=== PATIENT | female | born 1990 | race Two or more races ===

== ENCOUNTER 2020-03-09 10:43 | Inpatient (IN) | payer SELFPAY ==
[2020-03-09] MEDS ORDERED: VANCOMYCIN HCL INJ 1000 MG VIAL IV ONE (11:57)
[2020-03-09] MEDS ORDERED: PIPERACILLIN/TAZOBACTAM 4.5 GM VIAL IV ONE (11:57)
[2020-03-09 12:05] LABS: ABSOLUTE LYMPHOCYTES (AUTO) 2.4 10^3/uL (0.5-4.7); ABSOLUTE MONOCYTES (AUTO) 0.4 10^3/uL (0.1-1.4); ABSOLUTE NEUT (AUTO) 10.2 10^3/uL (1.7-8.2); BASOPHILS % (AUTO) 0.4 % (0-2); EOSINOPHILS % (AUTO) 0.3 % (0-6); HEMATOCRIT 29.7 % (36.0-47.0); HEMOGLOBIN 9.9 g/dL (12.0-15.5); LYMPHOCYTES % (AUTO) 18.4 % (13-45); MEAN CORPUSCULAR HEMOGLOBIN 29.6 pg (27.0-33.4); MEAN CORPUSCULAR HGB CONC 33.4 g/dL (32.0-36.0); MEAN CORPUSCULAR VOLUME 89 fl (80-97); MONOCYTES % (AUTO) 2.8 % (3-13); RED BLOOD COUNT 3.36 10^6/uL (3.72-5.28); RED CELL DISTRIBUTION WIDTH 17.8 % (11.5-14.0); SEGMENTED NEUTROPHILS % (AUTO) 78.1 % (42-78); TOTAL CELLS COUNTED % (AUTO) 100 %; WHITE BLOOD COUNT 13.1 10^3/uL (4.0-10.5)
[2020-03-09] MEDS ORDERED: RINGERS LACTATED IV ONE (12:09)
[2020-03-09 12:10] LABS: INTERNATIONAL RATION (INR) 1.31; PROTHROMBIN TIME 16.5 SEC (11.4-15.4)
[2020-03-09 12:22] LABS: ALBUMIN 2.9 g/dL (3.5-5.0); ALKALINE PHOSPHATASE 142 U/L (38-126); ASPARTATE AMINO TRANSFERASE 26 U/L (14-36); BILIRUBIN,TOTAL 1.1 mg/dL (0.2-1.3); BLOOD UREA NITROGEN 70 mg/dL (7-20); CALCIUM 8.3 mg/dL (8.4-10.2); GLUCOSE 106 mg/dL (75-110); POTASSIUM 4.5 mmol/L (3.6-5.0)
--- NOTE | 2020-03-09 12:25 | ER Document Report ---
ED General - General Chief Complaint: Drug Abuse Stated Complaint: SOB/NO APPETITE/MUSCLE PAIN/FEVER/CHEST PAIN Time Seen by Provider: 03/09/20 11:24 TRAVEL OUTSIDE OF THE [place] IN LAST 30 DAYS: No - HPI Notes: Chief complaint: Weakness and generalized myalgias, CP History of present illness: 29-year-old female with history of IV heroin abuse states that she last injected herself about 2 days ago and is now presenting with generalized weakness , CP and myalgias. She feels nauseated but has not vomited. We note that this lady has a past history of infective endocarditis. She was previously admitted here back in December of this year with suspected septic pulmonary emboli. She signed herself out AMA before completing treatment. I looked at those records and the chest x-ray at that time had shown some nodular densities suggestive of septic emboli. CT of the chest and abdomen were negative for obvious emboli. She had an echocardiogram performed around January [address] Rodriguez and this did not show any definite vegetations. Patient says she was subsequently admitted to [facility] and was told that she did have positive blood cultures and she was treated as an inpatient with IV antibiotics and subsequently told that the infection had " cleared". She says she completed the recommended course of treatment and did not sign herself out AMA at that facility. - Related Data Allergies/Adverse Reactions: No Known Allergies Allergy (Verified 01/23/15 14:42) Home Medications: propanolol Past Medical History - General Information source: Patient, [facility] Records - Social History Smoking Status: Current Some Day Smoker Frequency of alcohol use: Occasional Drug Abuse: Heroin Family History: Reviewed & Not Pertinent - Past Medical History Cardiac Medical History: Reports: Other - Bacterial endocarditis Pulmonary Medical History: Reports: Hx Asthma Neurological Medical History: Reports: Hx Migraine Endocrine Medical History: Denies: Hx Diabetes Mellitus Type 1, Hx Diabetes Mellitus Type 2 Psychiatric Medical History: Reports: Hx Anxiety, Hx Bipolar Disorder, Hx Depression Past Surgical History: Reports: Hx Cardiac Surgery - endocarditis - Immunizations Immunizations up to date: Yes Hx Diphtheria, Pertussis, Tetanus Vaccination: Yes Review of Systems - Review of Systems Notes: Constitutional: Negative for fever. HENT: Negative for sore throat. Eyes: Negative for visual changes. Cardiovascular: Diffuse intermittent chest pain. Respiratory: Negative for shortness of breath. Gastrointestinal: As per HPI . Genitourinary: Negative for dysuria. Musculoskeletal: As per HPI. Skin: Negative for rash. Neurological: Negative for headaches, focal weakness or numbness. 10 point ROS negative except as marked above and in HPI. Physical Exam - Vital signs Vitals: Pulse Resp BP Pulse Ox 91 20 80/42 L 100 03/09/20 11:02 03/09/20 11:02 03/09/20 11:02 03/09/20 11:02 Notes: GENERAL: Slender, chronically ill-appearing female approximately stated age who appears dehydrated. SKIN: Good turgor no rashes. Multiple needle tracks present. HEAD: Normocephalic atraumatic. EYES: As appear somewhat sunken consistent with dehydration. PERRLA. EOMI. Conjunctivae and sclerae clear. EARS: CANALS AND TMS CLEAR. NOSE: CLEAR. MOUTH: Tacky oral mucosa. Good dentition. No stridor or edema. No drooling. NECK: Supple. No masses or thyromegaly. No adenopathy. Carotids 2+ without bruits. No JVD. BACK: Symmetrical with mild diffuse tenderness. CHEST: Mild diffuse chest wall tenderness. Respirations unlabored. Breath sounds clear and symmetrical. HEART: Regular rhythm. No murmur gallop or rub. ABDOMEN: Soft nontender without masses, organomegaly or rebound. Bowel sounds normally active. No bruits. GENITALIA: Deferred. EXTREMITIES: No edema. No calf tenderness. Cap refill less than 1.5 seconds. Dorsalis pedis and posterior tibial pulses1+ and symmetrical. NEUROLOGICAL: GCS 15. Alert and oriented x3. Fluent speech. Cranial nerves II through XII intact. Sensorimotor and cerebellar normal. Normal tone. PSYCHIATRIC: Anxious affect. Course - Re-evaluation Re-evalutation: 03/09/20 14:01 Patient appears potentially septic. She has high lactate and acute renal injury. White count is normal. CO2 is low. Arterial blood gases been requested. Patient is received 30 cc/kg of lactated Ringer's. Her blood pressures come up to 82/60. She is getting additional fluids at this time. Random cortisol has been drawn. Findings discussed with on-call radial arm saw operator Dr. Buster Escalante. He will evaluate patient for ICU admission. - Vital Signs Vital signs: Temp Pulse Resp BP Pulse Ox 97.9 F 80 35 H 102/56 L 94 03/10/20 20:35 03/10/20 19:48 03/10/20 22:02 03/10/20 22:02 03/10/20 22:01 - Laboratory Result Diagrams: 03/10/20 02:28 03/10/20 02:28 Laboratory results interpreted by me: 03/09/20 03/09/20 03/09/20 11:29 11:29 11:29 WBC 13.1 H RBC 3.36 L Hgb 9.9 L Hct 29.7 L RDW 17.8 H Plt Count 71 L [place] % (Auto) 2.8 L Absolute Neuts (auto) 10.2 H Seg Neutrophils % 78.1 H PT 16.5 H Carbonic Acid ABG pH ABG pCO2 ABG pO2 ABG HCO3 ABG Total CO2 ABG O2 Saturation VBG pH VBG pCO2 VBG HCO3 Sodium 132.5 L Carbon Dioxide 9 L* Anion Gap 26 H BUN 70 H Creatinine 3.81 H Est GFR ( Amer) 17 L Est GFR (MDRD) Non-Af 14 L Lactic Acid Calcium 8.3 L Direct Bilirubin 1.0 H Alkaline Phosphatase 142 H Albumin 2.9 L Urine Protein Urine Ketones Urine Blood Urine Urobilinogen Leukocyte Esterase Rfl 03/09/20 03/09/20 03/09/20 11:29 13:45 14:21 WBC RBC Hgb Hct RDW Plt Count [place] % (Auto) Absolute Neuts (auto) Seg Neutrophils % PT Carbonic Acid ABG pH ABG pCO2 ABG pO2 ABG HCO3 ABG Total CO2 ABG O2 Saturation VBG pH 7.18 L* VBG pCO2 31.8 L VBG HCO3 11.7 L Sodium Carbon Dioxide Anion Gap BUN Creatinine Est GFR ( Amer) Est GFR (MDRD) Non-Af Lactic Acid 6.5 H Calcium Direct Bilirubin Alkaline Phosphatase Albumin Urine Protein 100 H Urine Ketones TRACE H Urine Blood MODERATE H Urine Urobilinogen 2.0 H Leukocyte Esterase Rfl MODERATE H 03/09/20 03/09/20 14:35 15:00 WBC RBC Hgb Hct RDW Plt Count [place] % (Auto) Absolute Neuts (auto) Seg Neutrophils % PT Carbonic Acid 0.85 L ABG pH 7.28 L ABG pCO2 28.3 L ABG pO2 22.6 L* ABG HCO3 13.1 L ABG Total CO2 14.0 L ABG O2 Saturation 34.0 L VBG pH VBG pCO2 VBG HCO3 Sodium Carbon Dioxide Anion Gap BUN Creatinine Est GFR ( Amer) Est GFR (MDRD) Non-Af Lactic Acid 5.0 H Calcium Direct Bilirubin Alkaline Phosphatase Albumin Urine Protein Urine Ketones Urine Blood Urine Urobilinogen Leukocyte Esterase Rfl - EKG Interpretation by Me Additional EKG results interpreted by me: 03/09/20 12:31 Twelve-lead EKG reviewed by me contemporaneously: 1050 hrs. Indication for study: Dyspnea and chest pain Rhythm: Normal sinus Rate: 92 Intervals: Prolonged QTC 505 ms QRS axis: +[address]/T wave changes: None Comparison with prior tracing: Compared with previous tracing of 12/20/2019 the patient sinus tachycardia has resolved. She has some new QT prolongation Interpretation: QT prolongation Critical Care Note - Critical Care Note Total time excluding time spent on procedures (mins): 35 - Sepsis protocol initiated. Discharge - Discharge Clinical Impression: sepsis Condition: Poor Disposition: AGAINST MEDICAL ADVICE
[2020-03-09] MEDS ORDERED: ONDANSETRON HCL INJ/PF 4 MG/2 ML SDV IV ONE (12:27)
[2020-03-09 12:28] LABS: CHLORIDE 98 mmol/L (98-107)
[2020-03-09 12:31] LABS: PLATELET COUNT 71 10^3/uL (150-450)
[2020-03-09 12:32] LABS: ANION GAP 26 (5-19); ANISOCYTOSIS 1+; PLATELET COMMENT DECREASED; PLATELET LARGE PRESENT; TOXIC GRANULATION 1+; TOXIC VACUOLATION PRESENT
[2020-03-09 12:36] LABS: CARBON DIOXIDE 9 mmol/L (22-30)
--- NOTE | 2020-03-09 13:11 | RADIOLOGY REPORT (SQ) ---
EXAM DESCRIPTION: CHEST SINGLE VIEW IMAGES COMPLETED DATE/TIME: 03/09/2020 12:50 pm REASON FOR STUDY: chest pain COMPARISON: 12/20/2019 FINDINGS: One-view chest AP portable upright. Interstitial prominence with suggestion of additional patchy mild areas of airspace disease. Suspici ous for pneumonia. Correlate also with COVID 19 risk. No evidence of pneumothorax. No significant pleural effusion. Bones intact. TECHNICAL DOCUMENTATION: JOB ID: [id number] Reading location - IP/workstation name: [email or web address]
[2020-03-09] MEDS ORDERED: NORMAL SALINE 1000 ML 1,000 ML IV ONE (13:33)
[2020-03-09] MEDS ORDERED: NORMAL SALINE 1000 ML 1,000 ML IV PRN (13:33)
[2020-03-09 14:12] LABS: VENOUS BLOOD BASE EXCESS -15.4 mmol/L; VENOUS BLOOD HCO3 11.7 mmol/L (20-32); VENOUS BLOOD PCO2 31.8 mmHg (35-63)
[2020-03-09 14:13] LABS: VENOUS BLOOD PH 7.18 (7.30-7.42)
[2020-03-09 14:36] LABS: AMORPHOUS SEDIMENT,URINE TRACE /HPF; APPEARANCE,URINE CLOUDY; BILIRUBIN,URINE NEGATIVE (NEGATIVE); COLOR,URINE AMBER; GLUCOSE, URINE NEGATIVE (NEGATIVE); KETONES,URINE TRACE mg/dL (NEGATIVE); PROTEIN,URINE 100 mg/dL (NEGATIVE); URINE SPECIFIC GRAVITY 1.024
[2020-03-09 14:58] LABS: URINE BARBITURATES SCREEN NEGATIVE; URINE BENZODIAZEPINES SCREEN NEGATIVE; URINE COCAINE SCREEN NEGATIVE; URINE MARIJUANA (THC) SCREEN NEGATIVE; URINE METHADONE SCREEN NEGATIVE; URINE PHENCYCLIDINE SCREEN NEGATIVE
[2020-03-09 15:04] LABS: URINE AMPHETAMINES SCREEN UNCONFIRMED POSITIVE
[2020-03-09 15:06] LABS: ARTERIAL BLOOD BASE EXCESS -12.3 mmol/L; ARTERIAL BLOOD H2CO3 0.85 mmol/L (1.05-1.35); ARTERIAL BLOOD HCO3 13.1 mmol/L (20-24); ARTERIAL BLOOD PCO2 28.3 mmHg (35-45); ARTERIAL BLOOD PH 7.28 (7.35-7.45)
[2020-03-09 15:17] LABS: ARTERIAL BLOOD FIO2 ROOM AIR; ARTERIAL BLOOD PO2 22.6 mmHg (80-100)
[2020-03-09] MEDS ORDERED: ONDANSETRON HCL INJ/PF 4 MG/2 ML SDV IV PRN (17:14)
--- NOTE | 2020-03-09 17:19 | RADIOLOGY REPORT (SQ) ---
EXAM DESCRIPTION: CT ABD/PELVIS NO ORAL OR IV IMAGES COMPLETED DATE/TIME: 03/09/2020 3:41 pm REASON FOR STUDY: Severe LS pain, IVDU, INOCENTE COMPARISON: 12/21/2019 TECHNIQUE: CT scan of the abdomen and pelvis performed without intravenous or oral contrast. Images reviewed with lung, soft tissue, and bone windows. Reconstructed coronal and sagittal MPR images revi ewed. All images stored on PACS. All CT scanners at this facility use dose modulation, iterative reconstruction, and/or weight based d osing when appropriate to reduce radiation dose to as low as reasonably achievable (ALARA). [facility]: Dose Right [facility]: CareDose [facility]: Dose Right [facility]: Teradose 4D [facility]: Smart [employer] RADIATION DOSE: CT Rad equipment meets quality standard of care and radiation dose reduction techniq ues were employed. CTDIvol: 4.8 mGy. DLP: 253 mGy-cm.mGy. LIMITATIONS: Motion artifact. Metal artifact 1st scan from cell phone. Scan had to be repeated. FINDINGS: LOWER CHEST: Patchy areas of reticulonodular density and ground-glass attenuation bilatera lly. NON-CONTRASTED LIVER, SPLEEN, ADRENALS: Evaluation limited by lack of IV contrast. No identified sign ificant masses. PANCREAS: No masses. No peripancreatic inflammatory changes. GALLBLADDER: No identified stones by CT criteria. No inflammatory changes to suggest cholecystitis. RIGHT KIDNEY AND URETER: No suspicious masses. Assessment limited by lack of IV contrast. No signif icant calcifications. No hydronephrosis or hydroureter. LEFT KIDNEY AND URETER: No suspicious masses. Assessment limited by lack of IV contrast. No signifi cant calcifications. No hydronephrosis or hydroureter. AORTA AND RETROPERITONEUM: No aneurysm. No retroperitoneal masses or adenopathy. BOWEL AND PERITONEAL CAVITY: No obvious masses or inflammatory changes. No free fluid. APPENDIX: Not visualized. PELVIS, BLADDER, AND ABDOMINAL WALL:Monreal catheter in urinary bladder. Small amount of free fluid. BONES: No significant findings. No obvious abnormality in the spinal cord. OTHER: No other significant finding. IMPRESSION: 1. No obvious abnormality in the spinal cord. 2. Bilateral reticulonodular opacities in the lung bases much improved over the prior. COMMENT: Quality ID # [id number]: Final reports with documentation of one or more dose reduction techniques (e.g., Automated exposure control, adjustment of the mA and/or kV according to patient size, use of iterative reconstruction technique) TECHNICAL DOCUMENTATION: JOB ID: [id number] 2010 [employer]- All Rights Reserved Reading location - IP/workstation name: [email or web address]
--- NOTE | 2020-03-09 17:35 | CRITICAL CARE ADMISSION REPORT ---
HPI Date:: 03/09/20 Time:: 15:00 Reason for ICU Reason:: Hypotension and ARF Admission Date/Time & PCP: Admission Date/Time: Primary Care Provider: HPI: This patient is a 29 yo woman who admits to using IV narcotics, last about 2 days ago. She has not felt well for the last few days with myalgias, weakness some dizziness and generalized pain. She is brought to the ED where she is found profoundly dehydrated, in ARF with a Cr of 3.8. Dark urine. Generalized pain in abdomen back and all 4 extremities. She has received at least 2L of NS and is fouind to be acidotic with a bicarb of 9. Dry mouth and some nausea. She is not on pressors as she is mentating well and pressure has been in the low 50s for a MAP. She is not hypoadrenal. History obtained from:: Old records, patient and Dr Garcia - Diagnosis/Plan (1) Hypotension Qualifiers: Hypotension type: orthostatic hypotension Qualified Code(s): I95.1 - Orthostatic hypotension Is this a current diagnosis for this admission?: Yes Plan: She is very dehydrated and not hypoadrenal likely the main cause. Acidosis is likely contributing. (2) Dehydration Is this a current diagnosis for this admission?: Yes Plan: Load with both bicarb and ringer's at 250/hr. (3) ARF (acute renal failure) Qualifiers: Acute renal failure type: unspecified Qualified Code(s): N17.9 - Acute kidney failure, unspecified Is this a current diagnosis for this admission?: Yes Plan: Likely due to dehydration, volume load. (4) Metabolic acidosis Is this a current diagnosis for this admission?: Yes Plan: Largely due to ARF, bicarb 9, start bicarb drip. Plan Summary: Volume load in the ICU. At this point she does not need pressors. Past Medical History Cardiac Medical History: Reports: Other - Bacterial endocarditis Pulmonary Medical History: Reports: Asthma Neurological Medical History: Reports: Migraine Endocrine Medical History: Denies: Diabetes Mellitus Type 1, Diabetes Mellitus Type 2 Psychiatric Medical History: Reports: Bipolar Disorder, Depression Social/Family History - Social History Smoking Status: Current Some Day Smoker Frequency of Alcohol Use: Occasional Hx Recreational Drug Use: Yes Drugs: Cocaine, Heroin - Medication/Allergies Home Medications: No Home Medications 12/21/19 Allergies/Adverse Reactions: No Known Allergies Allergy (Verified 01/23/15 14:42) Review of Systems Constitutional: PRESENT: anorexia, fatigue, weakness Eyes: ABSENT: visual disturbances Ears: ABSENT: hearing changes Cardiovascular: PRESENT: chest pain - Myalgic Respiratory: ABSENT: cough, hemoptysis Gastrointestinal: PRESENT: abdominal pain, nausea. ABSENT: constipation, diarrhea, hematemesis, hematochezia, vomiting Genitourinary: ABSENT: dysuria, hematuria Musculoskeletal: PRESENT: muscle weakness, other - Myalgias. Neurological: PRESENT: dizziness. ABSENT: abnormal gait, abnormal speech, confusion, focal weakness, syncope Endocrine: ABSENT: cold intolerance, heat intolerance, polydipsia, polyuria Physical Exam Vital Signs: Temp Pulse Resp BP Pulse Ox 94.4 F L 91 24 H 76/48 L 100 03/09/20 15:01 03/09/20 11:02 03/09/20 15:01 03/09/20 15:00 03/09/20 15:01 Intake & Output 03/08/20 03/09/20 03/10/20 06:59 06:59 05:59 Intake Total 3770 Balance 3770 Weight 47.3 kg Weight/Height Weight 47.3 kg General appearance: PRESENT: no acute distress, cooperative Head exam: PRESENT: atraumatic, normocephalic Eye exam: PRESENT: conjunctiva pink, EOMI, PERRLA. ABSENT: scleral icterus Ear exam: PRESENT: normal external ear exam Mouth exam: PRESENT: dry mucosa Respiratory exam: PRESENT: clear to auscultation fabricio. ABSENT: rales, rhonchi, wheezes Cardiovascular exam: PRESENT: RRR. ABSENT: diastolic murmur, rubs, systolic murmur GI/Abdominal exam: PRESENT: normal bowel sounds, soft. ABSENT: distended, guarding, mass, organolmegaly, rebound, tenderness Gentrourinary exam: PRESENT: indwelling catheter Extremities exam: PRESENT: full ROM. ABSENT: calf tenderness, clubbing, pedal edema Neurological exam: PRESENT: alert, awake, oriented to person, oriented to place, oriented to time, oriented to situation, CN II-XII grossly intact. ABSENT: motor sensory deficit Psychiatric exam: PRESENT: appropriate affect, normal mood. ABSENT: homicidal ideation, suicidal ideation Skin exam: PRESENT: dry, intact, warm. ABSENT: cyanosis, rash Laboratory/Radiographs Laboratory Results: 03/09/20 11:29 03/09/20 11:29 03/09/20 03/09/20 03/09/20 11:29 11:29 11:29 WBC 13.1 H RBC 3.36 L Hgb 9.9 L Hct 29.7 L MCV 89 MCH 29.6 MCHC 33.4 RDW 17.8 H Plt Count 71 L Seg Neutrophils % 78.1 H Carbonic Acid HCO3/H2CO3 Ratio ABG pH ABG pCO2 ABG pO2 ABG HCO3 ABG O2 Saturation ABG Base Excess VBG pH VBG pCO2 VBG HCO3 VBG Base Excess FiO2 Sodium 132.5 L Potassium 4.5 Chloride 98 Carbon Dioxide 9 L* Anion Gap 26 H BUN 70 H Creatinine 3.81 H Est GFR ( Amer) 17 L Glucose 106 Lactic Acid 6.5 H Calcium 8.3 L Total Bilirubin 1.1 AST 26 Alkaline Phosphatase 142 H Total Protein 7.0 Albumin 2.9 L Urine Color Urine Appearance Urine pH Ur Specific [place] Urine Protein Urine Glucose (UA) Urine Ketones Urine Blood Urine RBC (Auto) 03/09/20 03/09/20 03/09/20 13:45 14:21 14:35 WBC RBC Hgb Hct MCV MCH MCHC RDW Plt Count Seg Neutrophils % Carbonic Acid 0.85 L HCO3/H2CO3 Ratio 15:1 ABG pH 7.28 L ABG pCO2 28.3 L ABG pO2 22.6 L* ABG HCO3 13.1 L ABG O2 Saturation 34.0 L ABG Base Excess -12.3 VBG pH 7.18 L* VBG pCO2 31.8 L VBG HCO3 11.7 L VBG Base Excess -15.4 FiO2 ROOM AIR Sodium Potassium Chloride Carbon Dioxide Anion Gap BUN Creatinine Est GFR ( Amer) Glucose Lactic Acid Calcium Total Bilirubin AST Alkaline Phosphatase Total Protein Albumin Urine Color FLASH Urine Appearance CLOUDY Urine pH 5.0 Ur Specific [place] 1.024 Urine Protein 100 H Urine Glucose (UA) NEGATIVE Urine Ketones TRACE H Urine Blood MODERATE H Urine RBC (Auto) 03/09/20 15:00 WBC RBC Hgb Hct MCV MCH MCHC RDW Plt Count Seg Neutrophils % Carbonic Acid HCO3/H2CO3 Ratio ABG pH ABG pCO2 ABG pO2 ABG HCO3 ABG O2 Saturation ABG Base Excess VBG pH VBG pCO2 VBG HCO3 VBG Base Excess FiO2 Sodium Potassium Chloride Carbon Dioxide Anion Gap BUN Creatinine Est GFR ( Amer) Glucose Lactic Acid 5.0 H Calcium Total Bilirubin AST Alkaline Phosphatase Total Protein Albumin Urine Color Urine Appearance Urine pH Ur Specific [place] Urine Protein Urine Glucose (UA) Urine Ketones Urine Blood Urine RBC (Auto) 03/09/20 11:29 Troponin I 0.012 Impressions: Abdomen/Pelvis CT 03/09/20 14:43 IMPRESSION: 1. No obvious abnormality in the spinal cord. 2. Bilateral reticulonodular opacities in the lung bases much improved over the prior. All labs, radiographs, diagnostic studies and EKGs were personally reviewed: Yes In addition, reports of radiographic and diagnostic studies were read: Yes Critical Time Critical Time (minutes): 40 -: The care of a critically ill patient is dynamic. This note represents a static moment in the admission process. Orders and treatments may be given simultaneously and urgently, and time is not textile machinery sales representative of the treatment process. This patient requires Critical Care secondary to life threatening organ or limb dysfunction. Without Critical Care services, the patient is at risk for increased mortality and morbidity.
--- NOTE | 2020-03-09 17:40 | EKG REPORT ---
SEVERITY:- ABNORMAL ECG - SINUS RHYTHM PROLONGED QT INTERVAL LA ABNORMALITY : Confirmed by: Jarod Vazquez MD 09-Mar-2020 17:39:15
[2020-03-09] MEDS ORDERED: SODIUM BICARBONATE 8.4% INJ 50 MEQ/50 ML DISP.SYRIN ONE (18:42)
[2020-03-09] MEDS: RINGERS SOLUTION,LACTATED 1,000 ML IV PRN (18:43)
[2020-03-09] MEDS: DEXTROSE 5%-WATER 1000 ML 1,000 ML with SODIUM BICARBONATE 150 MEQ IV PRN ×2 (18:55)
[2020-03-09] MEDS: CALCIUM GLUC IN NACL, ISO-OSM 1 GM/50 ML RTUPB IV SCH ×2 (18:57→19:28)
[2020-03-09] MEDS: ENOXAPARIN SODIUM INJ 40 MG/0.4 ML DISP.SYRIN SUBCUT SCH (18:59)
[2020-03-09] MEDS: ACETAMINOPHEN 325 MG TABLET PO PRN (20:30)
[2020-03-09] MEDS: FAMOTIDINE 20 MG TABLET PO SCH (21:36)
[2020-03-10] MEDS ORDERED: HALOPERIDOL LACTATE INJ 5 MG/1 ML VIAL ONE (00:44)
[2020-03-10] MEDS ORDERED: HALOPERIDOL LACTATE INJ 5 MG/1 ML VIAL IV ONE (00:50)
[2020-03-10] MEDS ORDERED: SODIUM BICARBONATE 8.4% INJ 50 MEQ/50 ML DISP.SYRIN ONE (01:13)
[2020-03-10] MEDS ORDERED: RINGERS SOLUTION,LACTATED 1,000 ML IV ONE (02:17)
[2020-03-10] MEDS: DEXTROSE 5%-WATER 1000 ML 1,000 ML with SODIUM BICARBONATE 150 MEQ IV PRN ×6 (02:19→19:37)
[2020-03-10] MEDS ORDERED: LINEZOLID 600 MG/300 ML RTUPB IV ONE (02:23)
[2020-03-10] MEDS ORDERED: LINEZOLID 600 MG/300 ML RTUPB IV SCH ×2 (02:30→18:00)
[2020-03-10] MEDS: ACETAMINOPHEN 325 MG TABLET PO PRN ×3 (02:38→21:24)
[2020-03-10 02:40] LABS: HEMATOCRIT 20.4 % (36.0-47.0); MEAN CORPUSCULAR HEMOGLOBIN 29.3 pg (27.0-33.4); MEAN CORPUSCULAR HGB CONC 34.2 g/dL (32.0-36.0); MEAN CORPUSCULAR VOLUME 86 fl (80-97); RED BLOOD COUNT 2.38 10^6/uL (3.72-5.28); RED CELL DISTRIBUTION WIDTH 17.3 % (11.5-14.0); WHITE BLOOD COUNT 12.6 10^3/uL (4.0-10.5)
[2020-03-10 02:46] LABS: ALKALINE PHOSPHATASE 119 U/L (38-126); ANION GAP 16 (5-19); ASPARTATE AMINO TRANSFERASE 14 U/L (14-36); BILIRUBIN,DIRECT 0.5 mg/dL (0.0-0.4); BILIRUBIN,TOTAL 0.6 mg/dL (0.2-1.3); BLOOD UREA NITROGEN 66 mg/dL (7-20); CALCIUM 7.3 mg/dL (8.4-10.2); CARBON DIOXIDE 14 mmol/L (22-30); CHLORIDE 100 mmol/L (98-107); GLUCOSE 137 mg/dL (75-110); TOTAL PROTEIN 4.9 g/dL (6.3-8.2)
[2020-03-10 02:57] LABS: POTASSIUM 3.5 mmol/L (3.6-5.0)
[2020-03-10 03:08] LABS: ABSOLUTE LYMPHOCYTES# (MANUAL) 1.5 10^3/uL (0.5-4.7); ABSOLUTE MONOCYTES # (MANUAL) 0.4 10^3/uL (0.1-1.4); BAND NEUTROPHILS % (MANUAL) 5 % (3-5); BASOPHILS % (MANUAL) 0 % (0-2); EOSINOPHILS % (MANUAL) 0 % (0-6); LYMPHOCYTES % (MANUAL) 12 % (13-45); MONOCYTES % (MANUAL) 3 % (3-13); SEGMENTED NEUTROPHILS % (MAN) 80 % (42-78); TOTAL CELLS COUNTED 100; TOXIC VACUOLATION PRESENT
[2020-03-10 03:11] LABS: ANISOCYTOSIS 1+; PLATELET COMMENT DECREASED
[2020-03-10 03:12] LABS: POLYCHROMASIA SLIGHT; SCHISTOCYTES SLIGHT
[2020-03-10 03:13] LABS: BURR CELLS SLIGHT
[2020-03-10 03:18] LABS: PLATELET COUNT 69 10^3/uL (150-450)
[2020-03-10] MEDS ORDERED: NOREPINEPHRINE BITARTRATE INJ/PF 4 MG/4 ML SDV IV ONE ×2 (06:57→14:21)
[2020-03-10] MEDS: DEXTROSE 5%-WATER 250 ML with NOREPINEPHRINE BITARTRATE 4 MG IV PRN ×4 (07:13→15:44)
[2020-03-10] MEDS ORDERED: FENTANYL CITRATE INJ/PF 100 MCG/2 ML AMPUL IV PRN (07:47)
--- NOTE | 2020-03-10 07:57 | PDOC CRITICAL CARE PROG REPORT ---
General Date:: 03/10/20 ICU Day:: 2 Hospital Day:: 2 Resuscitation Status: Full Code Events in the past 12 to 24 Hours:: Still hypotensive. Positive BC starting levophed. Review of systems relevant to events:: CV, renal Reason for ICU Addmission:: Hypotension and ARF - Medications: Medications reviewed and adjusted accordingly: Yes Vasopressors:: Levophed Sedation:: None Physical Exam Vital Signs: Temp Pulse Resp BP Pulse Ox 97.7 F 75 31 H 76/44 L 97 03/10/20 06:04 03/09/20 19:04 03/10/20 06:04 03/10/20 06:04 03/10/20 06:04 Intake & Output 03/09/20 03/10/20 03/11/20 07:59 06:59 06:59 Intake Total 5 Output Total Balance 5 Weight Weight/Height Weight 56.2 kg Height 4 ft 11 in General appearance: PRESENT: no acute distress, cooperative Head exam: PRESENT: atraumatic, normocephalic Eye exam: PRESENT: conjunctiva pink, EOMI, PERRLA. ABSENT: scleral icterus Ear exam: PRESENT: normal external ear exam Mouth exam: PRESENT: moist, tongue midline Respiratory exam: PRESENT: clear to auscultation fabricio. ABSENT: rales, rhonchi, wheezes Cardiovascular exam: PRESENT: RRR. ABSENT: diastolic murmur, rubs, systolic murmur GI/Abdominal exam: PRESENT: normal bowel sounds, soft. ABSENT: distended, guarding, mass, organolmegaly, rebound, tenderness Rectal exam: PRESENT: deferred Gentrourinary exam: PRESENT: indwelling catheter Extremities exam: PRESENT: full ROM, other - Small raised area on L hand betwen webbing of thumb and index finger. Not red, painful, doubt infection. Pt says she bruised it.. ABSENT: calf tenderness, clubbing, pedal edema Musculoskeletal exam: PRESENT: normal inspection Neurological exam: PRESENT: alert, awake, oriented to person, oriented to place, oriented to time, oriented to situation, CN II-XII grossly intact. ABSENT: motor sensory deficit Psychiatric exam: PRESENT: appropriate affect, normal mood. ABSENT: homicidal ideation, suicidal ideation Skin exam: PRESENT: dry, intact, warm. ABSENT: cyanosis, rash Laboratory/Radiographs Laboratory Results: 03/10/20 02:28 03/10/20 02:28 03/09/20 03/09/20 03/09/20 11:29 11:29 11:29 WBC 13.1 H RBC 3.36 L Hgb 9.9 L Hct 29.7 L MCV 89 MCH 29.6 MCHC 33.4 RDW 17.8 H Plt Count 71 L Seg Neutrophils % 78.1 H Carbonic Acid HCO3/H2CO3 Ratio ABG pH ABG pCO2 ABG pO2 ABG HCO3 ABG O2 Saturation ABG Base Excess VBG pH VBG pCO2 VBG HCO3 VBG Base Excess FiO2 Sodium 132.5 L Potassium 4.5 Chloride 98 Carbon Dioxide 9 L* Anion Gap 26 H BUN 70 H Creatinine 3.81 H Est GFR ( Amer) 17 L Glucose 106 Lactic Acid 6.5 H Calcium 8.3 L Total Bilirubin 1.1 AST 26 Alkaline Phosphatase 142 H Total Protein 7.0 Albumin 2.9 L Urine Color Urine Appearance Urine pH Ur Specific [place] Urine Protein Urine Glucose (UA) Urine Ketones Urine Blood Urine RBC (Auto) 03/09/20 03/09/20 03/09/20 13:45 14:21 14:35 WBC RBC Hgb Hct MCV MCH MCHC RDW Plt Count Seg Neutrophils % Carbonic Acid 0.85 L HCO3/H2CO3 Ratio 15:1 ABG pH 7.28 L ABG pCO2 28.3 L ABG pO2 22.6 L* ABG HCO3 13.1 L ABG O2 Saturation 34.0 L ABG Base Excess -12.3 VBG pH 7.18 L* VBG pCO2 31.8 L VBG HCO3 11.7 L VBG Base Excess -15.4 FiO2 ROOM AIR Sodium Potassium Chloride Carbon Dioxide Anion Gap BUN Creatinine Est GFR ( Amer) Glucose Lactic Acid Calcium Total Bilirubin AST Alkaline Phosphatase Total Protein Albumin Urine Color FLASH Urine Appearance CLOUDY Urine pH 5.0 Ur Specific [place] 1.024 Urine Protein 100 H Urine Glucose (UA) NEGATIVE Urine Ketones TRACE H Urine Blood MODERATE H Urine RBC (Auto) 03/09/20 03/09/20 03/10/20 15:00 18:11 02:28 WBC 12.6 H RBC 2.38 L Hgb 7.0 L D Hct 20.4 L MCV 86 MCH 29.3 MCHC 34.2 RDW 17.3 H Plt Count 69 L Seg Neutrophils % Not Reportable Carbonic Acid HCO3/H2CO3 Ratio ABG pH ABG pCO2 ABG pO2 ABG HCO3 ABG O2 Saturation ABG Base Excess VBG pH VBG pCO2 VBG HCO3 VBG Base Excess FiO2 Sodium Potassium Chloride Carbon Dioxide Anion Gap BUN Creatinine Est GFR ( Amer) Glucose Lactic Acid 5.0 H 4.2 H Calcium Total Bilirubin AST Alkaline Phosphatase Total Protein Albumin Urine Color Urine Appearance Urine pH Ur Specific [place] Urine Protein Urine Glucose (UA) Urine Ketones Urine Blood Urine RBC (Auto) 03/10/20 03/10/20 02:28 02:28 WBC RBC Hgb Hct MCV MCH MCHC RDW Plt Count Seg Neutrophils % Carbonic Acid HCO3/H2CO3 Ratio ABG pH ABG pCO2 ABG pO2 ABG HCO3 ABG O2 Saturation ABG Base Excess VBG pH VBG pCO2 VBG HCO3 VBG Base Excess FiO2 Sodium 129.8 L Potassium 3.5 L D Chloride 100 Carbon Dioxide 14 L Anion Gap 16 BUN 66 H Creatinine 3.28 H Est GFR ( Amer) 20 L Glucose 137 H Lactic Acid 5.2 H Calcium 7.3 L Total Bilirubin 0.6 AST 14 Alkaline Phosphatase 119 Total Protein 4.9 L Albumin 2.0 L Urine Color Urine Appearance Urine pH Ur Specific [place] Urine Protein Urine Glucose (UA) Urine Ketones Urine Blood Urine RBC (Auto) 03/09/20 11:29 Troponin I 0.012 Impressions: Abdomen/Pelvis CT 03/09/20 14:43 IMPRESSION: 1. No obvious abnormality in the spinal cord. 2. Bilateral reticulonodular opacities in the lung bases much improved over the prior. All labs, radiographs, diagnostic studies and EKGs were personally reviewed: Yes In addition, reports of radiographic and diagnostic studies were read: Yes Assessment and Plan - Diagnosis (1) Hypotension Qualifiers: Hypotension type: orthostatic hypotension Qualified Code(s): I95.1 - Orthostatic hypotension Is this a current diagnosis for this admission?: Yes Plan: Not hypoadrenal. BC positive expect this to be related to infection. Keep on Zyvox. Start levophed as lactate is once again rising. (2) Dehydration Is this a current diagnosis for this admission?: Yes Plan: Resolved (3) ARF (acute renal failure) Qualifiers: Acute renal failure type: unspecified Qualified Code(s): N17.9 - Acute kidney failure, unspecified Is this a current diagnosis for this admission?: Yes Plan: Cr is 3.3, slightly improved. his is likely due to dehydration and use of Vancomycin. Zyvox ordered. (4) Metabolic acidosis Is this a current diagnosis for this admission?: Yes Plan: Improved on bicarb but still present with a level of 14. Plan Summary: Start levophed, keep MAP 65. Critical Time Critical Time (minutes): 35 Level of Care: ICU Anticipated discharge: Home Anticipated DC Timeframe: Other -: 1. The care of a critical patient is a dynamic process. This note is a sales representative [employer] synopsis but static in nature. The timeframe for treatments given in order is not necessarily the actual time these treatments may have been done. 2. This patient requires critical care secondary to ongoing requirements for therapy not offered or safe outside the critical care environment. Transfer to a lower level of care will result in altered life or limb morbidity and mortality. 3. Multidisciplinary rounds completed. 4. ABCDE bundle addressed.
[2020-03-10] MEDS: ENOXAPARIN SODIUM INJ 40 MG/0.4 ML DISP.SYRIN SUBCUT SCH (09:01)
[2020-03-10] MEDS: FAMOTIDINE 20 MG TABLET PO SCH ×2 (09:01→21:16)
[2020-03-10] MEDS: RINGERS SOLUTION,LACTATED 1,000 ML IV PRN ×2 (09:01→19:37)
[2020-03-10] MEDS ORDERED: MELATONIN 5 MG TABLET PO SCH (22:00)
[2020-03-10 22:08] VITALS: BP 102/56
--- NOTE | 2020-03-11 01:14 | Left Against Medical Advice ---
Against Medical Advice Admission Date/Time: 03/09/20 17:52 Primary Care Provider: Date of Patient Emigration: 03/11/20 - Diagnosis: (1) Hypotension Is this a current diagnosis for this admission?: Yes (2) Metabolic acidosis Is this a current diagnosis for this admission?: Yes - Summary: Summary: Please see Admission and Progress Notes as well. ZHANE GUTIÉRREZ is a 29 F, who LEFT AGAINST MEDICAL ADVICE. The Patient was admitted on 03/09/20 17:52. With sepsis secondary to MRSA bacteremia, history of infective endocarditis. She was previously admitted here back in December of this year with suspected septic pulmonary emboli. She signed herself out AMA before completing treatment. I looked at those records and the chest x-ray at that time had shown some nodular densities suggestive of septic emboli. CT of the chest and abdomen were negative for obvious emboli. She had an echocardiogram performed around January [address] Rodriguez and this did not show any definite vegetations. Patient says she was subsequently admitted to [facility] and was found to have a mobile vegetation on her tricuspid valve. An angiovac was done in the prestressed concrete laborer at [facility] to remove the vegetation as she was not a candidate for surgery. She did have positive blood cultures and she was treated as an inpatient with IV antibiotics and subsequently her blood cultures cleared. She says she completed the recommended course of treatment and did not sign herself out AMA at that facility. She was admitted here 03/09 with sepsis blood cultures positive MRSA started on Linezolid. She is on Levophed at 6 Mcg and maintaining a MAP or 60- 65. She states she is signing out AMA. I explained the risks including , and she states she is still leaving and will come back if she does not feel well. I did tell her that it may be to late at that point because sepsis is a life threatening illness. She understood and signed the AMA papers. Monreal and IV's removed by MONICA
== END 2020-03-11 01:15 | disposition left against medical advice (07) | DRG 872 ==
LOC: ER 10:43 → EH 17:52 → ICU 18:30
PROVIDERS: ADMIT Anesthesiology; ATTEND Anesthesiology
DX: A41.02 Sepsis due to Methicillin resistant Staphylococcus aureus (principal); N17.9 Acute kidney failure, unspecified; E87.2 Acidosis; E86.0 Dehydration; Z20.828 Contact with and (suspected) exposure to other viral communicable diseases; F17.200 Nicotine dependence, unspecified, uncomplicated; F11.10 Opioid abuse, uncomplicated
CPT/HCPCS: 36415; 51702; 71045; 74176; 80053; 80307; 81001; 82533; 82803; 83605; 84484; 85025; 85610; 87040; 87070; 87077; 87086; 87088; 87150; 87186; 87635; 93005; 93010; 96361; 96365; 96368; 99285; 99291; J0610; C9803; J1630; J2020; J2543; J3370; J3490; J7030; J7060; J7120

== ENCOUNTER 2020-03-14 16:24 | Emergency (ER) | payer SELFPAY ==
[2020-03-14] MEDS ORDERED: INSULIN REG, HUMAN 100 UNIT/ML 3 ML VIAL (PYX) ONE (16:45)
[2020-03-14] MEDS ORDERED: DEXTROSE 50%-WATER 25 GM/50 ML DISP.SYRIN IV ONE (16:46)
[2020-03-14] MEDS ORDERED: GLUCAGON,HUMAN RECOMB 1 MG INJ ONE (16:50)
[2020-03-14 17:22] LABS: INTERNATIONAL RATION (INR) 3.65
[2020-03-14 17:29] LABS: MEAN CORPUSCULAR HEMOGLOBIN 29.6 pg (27.0-33.4); MEAN CORPUSCULAR HGB CONC 25.7 g/dL (32.0-36.0); RED BLOOD COUNT 1.08 10^6/uL (3.72-5.28); RED CELL DISTRIBUTION WIDTH 20.5 % (11.5-14.0); WHITE BLOOD COUNT 24.2 10^3/uL (4.0-10.5)
[2020-03-14 17:30] LABS: ALBUMIN 1.8 g/dL (3.5-5.0); ALKALINE PHOSPHATASE 222 U/L (38-126); ASPARTATE AMINO TRANSFERASE 431 U/L (14-36); BILIRUBIN,DIRECT 0.3 mg/dL (0.0-0.4); BILIRUBIN,TOTAL 0.5 mg/dL (0.2-1.3); BLOOD UREA NITROGEN 37 mg/dL (7-20); CALCIUM 8.7 mg/dL (8.4-10.2); CHLORIDE 104 mmol/L (98-107); GLUCOSE 117 mg/dL (75-110); TOTAL PROTEIN 4.8 g/dL (6.3-8.2)
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
--- NOTE | 2020-03-14 18:06 | EKG REPORT ---
SEVERITY:- ABNORMAL ECG - SINUS RHYTHM SUPRAVENTRICULAR BIGEMINY FIRST DEGREE AV BLOCK PROBABLE LEFT ATRIAL ABNORMALITY IVCD, CONSIDER ATYPICAL RBBB : Confirmed by: Noah Rodriguez MD 14-Mar-2020 18:05:25
[2020-03-14 18:16] LABS: HEMATOCRIT 12.5 % (36.0-47.0); HEMOGLOBIN 3.2 g/dL (12.0-15.5); PLATELET COUNT 46 10^3/uL (150-450)
[2020-03-14 18:26] LABS: ABSOLUTE LYMPHOCYTES# (MANUAL) 16.9 10^3/uL (0.5-4.7); ABSOLUTE MONOCYTES # (MANUAL) 1.9 10^3/uL (0.1-1.4); BAND NEUTROPHILS % (MANUAL) 4 % (3-5); BASOPHILS % (MANUAL) 0 % (0-2); EOSINOPHILS % (MANUAL) 1 % (0-6); LYMPHOCYTES % (MANUAL) 70 % (13-45); MONOCYTES % (MANUAL) 8 % (3-13); SEGMENTED NEUTROPHILS % (MAN) 17 % (42-78); TOTAL CELLS COUNTED 100
[2020-03-14 18:30] LABS: ANISOCYTOSIS 2+; PLATELET COMMENT DECREASED; POLYCHROMASIA SLIGHT
[2020-03-14 19:19] LABS: CARBON DIOXIDE < 5 mmol/L (22-30); POTASSIUM 7.7 mmol/L (3.6-5.0)
[2020-03-15 07:20] LABS: MEAN CORPUSCULAR VOLUME 115 fl (80-97)
[2020-03-15 13:29] LABS: PATH REVIEW PATHOLOGIST REVIEWED
== END 2020-03-14 17:00 | disposition other institution (70) ==
LOC: ER 16:24
PROC: 0BH17EZ Insertion of Endotracheal Airway into Trachea, Via Natural or Artificial Opening (ICD-10-PCS; principal; 2020-03-14)
DX: I46.9 Cardiac arrest, cause unspecified (principal); R40.4 Transient alteration of awareness; R50.9 Fever, unspecified; R06.02 Shortness of breath; R00.0 Tachycardia, unspecified; R00.1 Bradycardia, unspecified; R53.1 Weakness; J45.909 Unspecified asthma, uncomplicated; Z99.81 Dependence on supplemental oxygen; F17.210 Nicotine dependence, cigarettes, uncomplicated
CPT/HCPCS: 36415; 80053; 82962; 83605; 84484; 85025; 85610; 87040; 87077; 87150; 87186; 93005; 93010; 94660; 99284